=== PATIENT | female | born 1980 | race Caucasian/White ===

== ENCOUNTER 2019-10-23 06:50 | Day surgery (SDC) | payer OTHER ==
[~2019-10-23] VITALS: Ht 170.2 cm; Wt 96.2 kg
[~2019-10-23 06:50] MED LIST: CARAFATE1 GM PO; NORCO 5-325 TA1 EACH PO; PHENTERMINE H37.5 M1 PO; PRILOSEC20 MG PO; TOPIRAMATE100 MG PO
--- NOTE | 2019-10-23 08:33 | NUR ---
PATIENT UPDATED ON SURGICAL SCHEDULE AND SHE VERBALIZES UNDERSTANDING. PATIENT DENIES ADDITIONAL NEEDS AT THIS TIME.
--- NOTE | 2019-10-23 09:56 | NUR ---
10/23/19 0956 Mallika Roque 0945- PT ARRIVES TO PACU EASILY AROUSABLE TO VOICE, FALLS TO SLEEP WHEN NOT BEING STIMULATED. RESP EVEN AND UNLABORED. OXYGEN SAT HIGH 90'S TO 100% ON 6L VIA MASK. 0948- PT PULLING OFF OXYGEN MASK. OXYGEN MASK REMOVED AND PT ENCOURAGED TO COUGH AND DEEP BREATHE.
[2019-10-23] MEDS ORDERED: MOTRIN IB200 M1 PO (10:33)
[2019-10-23] MEDS ORDERED: NORCO 5-325 TA1 EACH PO (10:33)
--- NOTE | 2019-10-23 11:12 | NUR ---
AMB TO BR DOES WELL. VOIDS 200MLS WITH BLOOD.
--- NOTE | 2019-10-23 11:19 | NUR ---
DISCHARGE INSTRUCTIONS ARE GIVEN TO PATIENT IN PRESENCE OF HER SPOUSE AND BOTH VERBALIZE UNDERSTANDING. PATIENT IS GETTING DRESSED IN PRESENCE OF SPOUSE.
--- NOTE | 2019-10-24 10:56 | OR ---
[facility] [address] [place], [place] [address] Signed DATE OF OPERATION: 10/23/2019 SURGEON: Brent Berrios MD Patient of Dr. Berrios. PREOPERATIVE DIAGNOSIS: Abnormal uterine bleeding. POSTOPERATIVE DIAGNOSIS: Abnormal uterine bleeding. PROCEDURE: Hysteroscopy with D and C. ANESTHESIA: Monitored anesthesia care. ESTIMATED BLOOD LOSS: 25 mL. SPECIMEN: Uterine curettings. DRAINS: None. PACKING: None. FINDINGS: Normal vagina. Normal cervix. The uterus normal size and shape with endometrial cavity sounded to 9 cm, having normal-appearing endometrial tissue with no polyps, no fibroids seen in the cavity. Both ostia appeared normal. COMPLICATIONS: None. DESCRIPTION OF PROCEDURE: The patient was brought to the operating room and placed in supine position. After Electronically Signed By: BRENT BERRIOS MD 10/24/19 1056 PATIENT NAME: ZACHARY MALDONADO OPERATIVE REPORT DATE OF : 76 REPORT #: [id number] PHYSICIAN: BRENT BERRIOS MD PCP: JAKE PHILLIPS NP REPORT IS CONFIDENTIAL AND NOT TO BE RELEASED WITHOUT AUTHORIZATION [facility] [address] [place], [place] [address] Signed adequate anesthesia was obtained, the patient was placed in the dorsal lithotomy position, prepped and draped in usual sterile fashion. Weighted speculum was placed in the vagina and the anterior lip of cervix grasped with the Allis clamp. Uterine cavity was sounded to 9 cm and cervix serially dilated. The hysteroscope with video attachment was placed in the endocervical canal and entered uterine cavity under direct visualization using sterile saline as distending medium. Upon entering the uterus, the above findings were noted. No abnormalities were seen throughout the cavity, so the hysteroscope was removed. The cervix dilated further up to #8-Mohawk dilator and then sharp curette carefully introduced in uterine cavity and scraped in 360-degree fashion removing moderate amount of normal-appearing tissue. The cavity was scraped in the fundus in 360 degrees. Again, good sampling throughout and tissue placed on Telfa. At this point, the Telfa pad and Allis clamp were removed and the cervix observed and noted to have good hemostasis. All instruments were removed from vagina. The patient tolerated the procedure well, went to recovery room in good condition. The sponge and instrument count correct at the end of procedure. Uterine curettings were sent to Pathology for identification. MD NAVARRO AngelesB/KAYCEEL /[id number] cc: Jake Phillips NP Copies: JAKE PHILLIPS NP ~ Electronically Signed By: BRENT BERRIOS MD 10/24/19 1056 PATIENT NAME: ZACHARY MALDONADO OPERATIVE REPORT DATE OF : [birth year] REPORT #: [id number] PHYSICIAN: BRENT BERRIOS MD PCP: JAKE PHILLIPS NP REPORT IS CONFIDENTIAL AND NOT TO BE RELEASED WITHOUT AUTHORIZATION
--- NOTE | 2019-10-29 09:06 | PATH ---
[facility] [address] [place], [place] [address] Signed SPECIMEN(S): A ENDOMETRIAL CURETTINGS SPECIMEN SOURCE: A. ENDOMETRIAL CURETTINGS CLINICAL HISTORY: Abnormal uterine bleeding. FINAL PATHOLOGIC DIAGNOSIS: Uterus, endometrium, curettage: - Late secretory phase. - Negative for hyperplasia, atypia, and malignancy. KIMA:wale:C2NR MICROSCOPIC EXAMINATION: Histologic sections of all submitted blocks are examined by light microscopy. These findings, together with the gross examination, support the pathologic diagnosis. GROSS DESCRIPTION: The specimen, labeled "DS, A" and "endometrial curettings" on the requisition, is received in formalin and consists of a 2.3 x 2.2 x 0.7 cm aggregate of soft, chaudhary to red tissue that is wrapped and submitted entirely in cassettes (A1-A2). SS (under the direct supervision of a pathologist) The Gross Description was prepared using a voice recognition system. The report was reviewed for accuracy; however, sound-alike word errors, addition and/or deletions may occur. If there is any question about this report, please contact Client Services. PERFORMING LABORATORY: The technical component was performed by [facility], [address] [place] [id number] (Graduation Coach: Krysten Goodwin MD; CLIA# [id number]). [facility], [address] [address] (CLIA# [id number]). Diagnostician: Juan Thomas MD Pathologist Electronically Signed 10/29/2019 PATIENT NAME: ZACHARY MALDONADO PATHOLOGY DATE OF : [birth year] REPORT #: [id number] PHYSICIAN: ALLISON ROMAN PCP: JAKE PHILLIPS NP REPORT IS CONFIDENTIAL AND NOT TO BE RELEASED WITHOUT AUTHORIZATION [address] [place] [address] Signed Copies: ~ PATIENT NAME: ZACHARY MALDONADO PATHOLOGY DATE OF : [birth year] REPORT #: [id number] PHYSICIAN: ALLISON PATHOLOGY PCP: JAKE PHILLIPS NP REPORT IS CONFIDENTIAL AND NOT TO BE RELEASED WITHOUT AUTHORIZATION
== END 2019-10-23 11:20 | disposition home or self-care (01) ==
LOC: DS 06:50 → OPS 06:50 → DS 08:30 → OPS 11:20
PROVIDERS: General Practice
PROC: 0UDB8ZZ Extraction of Endometrium, Via Natural or Artificial Opening Endoscopic (ICD-10-PCS; principal; 2019-10-23 08:30)
DX: N93.9 Abnormal uterine and vaginal bleeding, unspecified (principal); R51 Headache; K58.9 Irritable bowel syndrome, unspecified; K21.9 Gastro-esophageal reflux disease without esophagitis; Z90.721 Acquired absence of ovaries, unilateral; Z88.1 Allergy status to other antibiotic agents; Z79.899 Other long term (current) drug therapy
CPT/HCPCS: 00952; J1100; J1885; J2001; J2405; J2704; J3010; J7121

== ENCOUNTER 2020-03-25 05:35 | Day surgery (SDC) | payer OTHER ==
[~2020-03-25] VITALS: Ht 170.2 cm; Wt 98.0 kg
[~2020-03-25 05:35] MED LIST changes: +MOTRIN IB200 M1 PO
[2020-03-25] MEDS ORDERED: DAILY MULTIPLE1 EACH PO (05:58)
--- NOTE | 2020-03-25 09:20 | NUR ---
03/25/20 0920 Rosalba Patel 0913- PT TO PACU IN SF POSITION. EYES CLOSED. NODS HEAD YES/NO APPROPRIATELY. NODS HEAD YES TO PAIN BUT UNABLE TO OPEN EYES AND RATE PAIN. BREATHING EASY AND UNLABORED ON 6 L O2 VIA SIMPLE MASK. SPO2 >95%. LAP SITES CDI, PADMINI PAD IN PLACE. 0918- PT CONTINUES TO SLEEP. BREATHING EASY AND UNLABORED ON 6 L O2 VIA SIMPLE MASK. SP02 100%. REPORT RECEIVED FROM ULTRASONIC CLEANER.
--- NOTE | 2020-03-25 10:24 | NUR ---
ICED WATER AND ORA CRACKERS GIVEN. CALL LIGHT IS WITHIN REACH. PATIENT'S SPOUSE IS AT THE BEDSIDE. PATIENT IS SITTING UP EATING AND DRINKING AND TOLERATING THAT WELL.
--- NOTE | 2020-03-25 11:09 | NUR ---
LE 1030: PATIENT IS UP TO THE BATHROOM WITH MY STANDBY. PATIENT AMBULATES SLOW AND REPORTS PAIN WHILE AMBULATING. LANDRY BALLOON DEFLATED FOR 8 ML FLUID AND LANDRY IS DC WNL. 200 ML BRIGHT, YELLOW URINE EMPTIED FROM LANDRY OVERNIGHT BAG. PATIENT VOIDS SCANT AMOUNT OF BRIGHT, YELLOW URINE AND SHE IS BACK IN BED. PATIENT REPORTS FEELING "HOT." PRICILA HUGGER ON COOL. SCDS CONNECTED AND TURNED ON. PRN GIVEN FOR NAUSEA. HOB IS DOWN. EMESIS BAG IS GIVEN.
--- NOTE | 2020-03-25 11:23 | NUR ---
SOUP, SANDWICH AND FRUIT ORDERED FROM DIETARY. PATIENT'S SPOUSE IS AT THE BEDSIDE.
[2020-03-25] MEDS ORDERED: PERCOCET 5-3251 EACH PO (11:34)
[2020-03-25] MEDS ORDERED: MOTRIN IB200 MG PO (11:34)
--- NOTE | 2020-03-25 11:55 | NUR ---
FOOD ARRIVES. PATIENT REPORTS NAUSEA. ADDITIONAL PRN GIVEN FOR NAUSEA. PATIENT CONTINUES USING COOL AIR. SPOUSE REMAINS AT THE BEDSIDE.
--- NOTE | 2020-03-25 14:35 | NUR ---
PATIENT IS UP TO THE BATHROOM. PATIENT VOIDS 300 ML BRIGHT, YELLOW URINE AND IS BACK IN BED. SPOUSE REMAINS AT THE BEDSIDE. PATIENT ASKS FOR ADDITIONAL PRN FOR PAIN. PATIENT ATE 100% OF HER LUNCH. MORE ICED WATER GIVEN. PATIENT DENIES NAUSEA AT THIS TIME.
--- NOTE | 2020-03-25 15:12 | NUR ---
LE 1445: PATIENT PUSHES HIS CALL LIGHT AND ASKS TO BE DISCHARGED HOME. PATIENT IS GIVEN DISCHARGE INSTRUCTIONS AND SHE VERBALIZES UNDERSTANDING. REDNESS NOTED ON PATIENT'S LEFT FOREARM AND IS APPEARS TO BE FROM THE IV TUBING. PATIENT REUBEN PAIN AT THIS SITE. PATIENT IS GETTING DRESSED IN THE PRESENCE OF HER SPOUSE AND SHE TRANSFERS HERSELF TO THE WHEELCHAIR WELL.
--- NOTE | 2020-03-26 08:46 | OR ---
[facility] [address] [place] [address] [place], [place] [address] Signed DATE OF OPERATION: 03/25/2020 SURGEON: Brent Berrios MD PREOPERATIVE DIAGNOSIS: Abnormal uterine bleeding. POSTOPERATIVE DIAGNOSES: Abnormal uterine bleeding plus sigmoid adhesions. PROCEDURE PERFORMED: Total laparoscopic hysterectomy with right salpingectomy and cystoscopy. INSURANCE LOSS CONTROL SURVEYOR: Dr. Warren. ANESTHESIA: General. ESTIMATED BLOOD LOSS: 20 mL. COMPLICATIONS: None. DRAINS: Swenson to bladder. SPECIMENS: Uterus, right fallopian tube. FINDINGS: Cervix thick and closed. Uterus normal size and shape. The anterior cul-de-sac was free of any endometriosis or adhesions. The posterior cul-de-sac had dense adhesions from the sigmoid covering the posterior cul-de-sac and incorporating the right uterosacral ligament. The left tube and ovary were absent from previous surgery. The right tube was normal in length with a normal-appearing fimbriated end and no adhesions. Right ovary is normal size and shape without any evidence of endometriosis or adhesions. The rest of pelvis was free of any masses or adhesions. Electronically Signed By: BRENT BERRIOS MD 03/26/20 0846 PATIENT NAME: ZACHARY MALDONADO OPERATIVE REPORT DATE OF : [birth year] REPORT #: [id number] PHYSICIAN: BRENT BERRIOS MD PCP: JAKE PHILLIPS NP REPORT IS CONFIDENTIAL AND NOT TO BE RELEASED WITHOUT AUTHORIZATION [facility] [address] [place], [place] [address] Signed DESCRIPTION OF PROCEDURE: The patient was brought into the operating room, placed in supine position. After adequate general anesthesia was obtained, she was placed in dorsal lithotomy position, prepped and draped in usual sterile fashion. Swenson catheter was placed in the bladder. Weighted speculum was placed in the vagina and the anterior lip of cervix grasped with an Allis clamp. The cervix was serially dilated and then the VCare uterine manipulator was inserted through the cervix into the fundus of the uterus and the balloon filled. The Allis clamp and weighted speculum were removed and the cervical cap of the VCare was slid up around the cervix and then the vaginal cup slid up and tightened in place to keep the cervical cap around the cervix. Attention was then drawn to the abdomen. A small infraumbilical skin incision was made through previous surgical scar using a scalpel after injecting the area with 0.25% Marcaine with epinephrine. The subcutaneous tissue was dissected with Metzenbaum scissors. The fascia identified and grasped with hemostats, elevated, nicked with Metzenbaum scissors and extended in transverse fashion using Metzenbaum scissors. Retention stitches of 0 Vicryl were then placed above and below the incision. The peritoneum was identified, carefully grasped with hemostats and nicked with Metzenbaum scissors and then finger dissection was used to open the incision further. An S retractor was inserted into the incision and spun 360-degree fashion showing no assistance. The Steven cannula and sleeve then entered the abdomen under direct visualization with the balloon filled in the outer ring, slid down and tightened in place. The two retention stitches were then attached to this upper ring. The trocar was removed and laparoscope with video attachment entered the abdomen under direct visualization. Carbon dioxide was used as distending medium. The left side approximately 10 cm lateral to the midline and just below the level of the umbilicus, the area was transilluminated then injected with 0.25% Marcaine with epinephrine and a small skin incision made with a scalpel. A bladed 5-mm trocar and sleeve entered the abdomen under direct visualization. The trocar was removed and the blunt grasper inserted. On the right side again, the area was transilluminated. The area injected with 0.25% Marcaine with epinephrine and the skin incision made with a scalpel. Again, this was approximately 10 cm lateral to the midline and just below the level of the umbilicus. A Veress needle with expandable sleeve was then placed into the abdomen under direct visualization. The Veress needle was removed and a 12 mm expandable trocar and sleeve placed through the expandable sleeve into the abdomen under direct visualization. Trocar was removed and 2nd blunt grasper inserted on this side. The above findings were noted. The sigmoid adhesions were carefully inspected. They did seem to be right at the level of the cervical cap, which could be palpated with a blunt grasper and seemed to be right at the level of the adhesions. The LigaSure bipolar [place] forceps were used for dissection. The right fallopian tube was cauterized and transected in the proximal portion and the tube removed through the lateral port. The left round ligament was cauterized and cut. The upper broad ligament cauterized and cut and then the anterior posterior leaves of the broad ligament individually Electronically Signed By: BRENT BERRIOS MD 03/26/20 0846 PATIENT NAME: ZACHARY MALDONADO OPERATIVE REPORT DATE OF : [birth year] REPORT #: [id number] PHYSICIAN: BRENT BERRIOS MD PCP: JAKE PHILLIPS NP REPORT IS CONFIDENTIAL AND NOT TO BE RELEASED WITHOUT AUTHORIZATION [address], [place] [address] Signed cauterized and cut down the length of the broad ligament staying near the uterus and extending to the midline anteriorly and posteriorly stopping before getting to the adhesions. The left uterine vessels were cauterized in several places before cutting and individual vessels were cauterized and cut as identified clearing the tissue down the inside the cup down to the vaginal wall. On right side, the round ligament was cauterized in several places and cut. The uteroovarian ligament cauterized in several places and cut and then the upper pedicle cauterized and cut. The anterior posterior leaves of the broad ligament individually cauterized and cut. Anteriorly, this connected to the previous anterior dissection just inside the cup and posteriorly, this was taken down again stopping before reaching the adhesions. Uterine vessels on the right side were cauterized in several places and cut the tissue, cauterized and cut down to the vaginal wall. At this point, laparoscopic scissors were used to carefully cut the peritoneum and part of the cervical tissue above the sigmoid adhesions. Care was taken to make sure that the sigmoid was not disrupted. The sigmoid serosa was not disrupted leaving a small portion of cervical tissue rather than injuring the sigmoid. With this partially dissected free area between the cervix and the sigmoid was identified. The Sonicision was then used to cut through the vaginal wall, this started at left uterosacral ligament and this was opened until the groove of the cervical cap was found and then following the groove of the cap, the Sonicision was used to cut through the vaginal mucosa wall from posterior to anterior midline and then on the left side and then on the right side carefully down from anterior to down stopping before reaching the sigmoid adhesions. At this point, the Sonicision was used in the space created by the laparoscopic scissors just inside the cup and was carefully taken down leaving some tissue between the sigmoid and dissection. This was then joined with the previous dissection on the left side, freeing the uterus. Attention was then drawn to the abdomen. The VCare manipulator was carefully removed. The cervix seen in the vagina and cervix grasped with an Allis clamp and easily removed from the vagina. The laparotomy sponge filled glove was then placed in the vagina so the abdomen could be re-insufflated. Attention was then drawn back to the abdomen. The abdomen was re-insufflated and the entire pelvis irrigated, suctioned and examined. There was small amount of bleeding on the left cuff by the uterosacral ligament and this was carefully cauterized with the laparoscopic monopolar paddle. At this point, the endo-stitch barbed suture was brought in and the cuff closed starting at the right uterosacral ligament and stitching posterior to anterior through the posterior cuff edge and after first stitch placing the suture through the small loop at the end of the barbed suture, the barbed suture was then tightened and then the anterior edge of the cuff stitched again posterior to anterior and again tightened. This was continued individually grasping the posterior edge pulling through and then the anterior edge in pulling through. There was enough tissue so that the posterior cuff could be closed without being in the adhesions or near Electronically Signed By: BRENT BERRIOS MD 03/26/20 0846 PATIENT NAME: ZACHARY MALDONADO OPERATIVE REPORT DATE OF : [birth year] REPORT #: [id number] PHYSICIAN: BRENT BERRIOS MD PCP: JAKE PHILLIPS NP REPORT IS CONFIDENTIAL AND NOT TO BE RELEASED WITHOUT AUTHORIZATION [address] [address] Signed the sigmoid colon and anteriorly, care was taken to avoid the bladder. This was continued over to the left uterosacral ligament and then the stitch taken back toward the midline again stopping before reaching the adhesions. At this point, the cuff was closed well. Good hemostasis was noted throughout. The entire pelvis was irrigated, suctioned and examined. Tisseel was then sprayed over the entire cuff particularly by the adhesions to help control any oozing and at this point, again good hemostasis was noted throughout, the gas was allowed to escape lowering the pressure and good hemostasis remained. At this point, all instruments were removed. The rest of the gas allowed to escape and the final sleeve removed. The infraumbilical fascia was closed using a running stitch of 0 Vicryl suture. The two retention stitches tied together for further support of the fascia. The 3 skin incisions were closed using subcuticular stitches of 4-0 Vicryl. The glove was removed from the vagina and the Swenson removed from the bladder. The cystoscope was prepared and the 70-degree cystoscope was placed in the urethra and entered the bladder under direct visualization using sterile saline as distending medium. The entire bladder was examined and there were no defect stitches or raw areas noted. Both ureteral orifices were identified and both had good jets of urine. So at this point, the cystoscope was removed, the bladder drained, and the sleeve removed from the urethra. Swenson catheter placed back in the bladder. The patient tolerated the procedure well, went to recovery room in good condition. The sponge, needle and instrument count were correct at the end of procedure. Again, the uterus and right fallopian tube were sent to Pathology for identification. MD AMANDO Angeles/CARRIE /[id number] cc: Jake Phillips NP Copies: JAKE PHILLIPS NP Electronically Signed By: BRENT BERRIOS MD 03/26/20 0846 PATIENT NAME: ZACHARY MALDONADO OPERATIVE REPORT DATE OF : [birth year] REPORT #: [id number] PHYSICIAN: BRENT BERRIOS MD PCP: JAKE PHILLIPS NP REPORT IS CONFIDENTIAL AND NOT TO BE RELEASED WITHOUT AUTHORIZATION [address] [place], [place] [address] Signed ~ Electronically Signed By: BRENT BERRIOS MD 03/26/20 0846 PATIENT NAME: ZACHARY MALDONADO OPERATIVE REPORT DATE OF : [birth year] REPORT #: [id number] PHYSICIAN: BRENT BERRIOS MD PCP: JAKE PHILLPIS NP REPORT IS CONFIDENTIAL AND NOT TO BE RELEASED WITHOUT AUTHORIZATION
--- NOTE | 2020-03-29 14:25 | PATH ---
[facility] [address] [place], [place] [address] Signed SPECIMEN(S): A UTERUS, CERVIX AND RIGHT TUBE SPECIMEN SOURCE: A. UTERUS, CERVIX AND RIGHT TUBE CLINICAL HISTORY: Abnormal uterine bleeding. FINAL PATHOLOGIC DIAGNOSIS: Uterus, cervix, and right fallopian tube, hysterectomy and unilateral salpingectomy: - Cervix: Tunnel clusters. - Endometrium: Secretory phase endometrium. - Myometrium and serosa: No histopathologic abnormality. - Right fallopian tube: No histopathologic abnormality. NAL:cml:C2NR MICROSCOPIC EXAMINATION: Histologic sections of all submitted blocks are examined by light microscopy. These findings, together with the gross examination, support the pathologic diagnosis. GROSS DESCRIPTION: The specimen, labeled "DS, uterus, cervix and right fallopian tube," is received in formalin and consists of one hard to oriented uterus and cervix. The uterus measures 5.0 cm cornu to cornu, 3.5 cm anterior to posterior, 7.3 cm superior to ectocervix. The serosal surface is pink-chaudhary and smooth. The uterus weighs 103 grams. The ectocervix is pink-chaudhary, focally congested and slightly rough around cervical canal opening. The ectocervix measures 3.5 x 3.5 cm. Sectioning through the cervix reveals pink-chaudhary, homogenous tissue. The endometrial cavity measures 2.2 x 2.5 cm. It is lined with pink-red, smooth endometrium. Sectioning through the myometrium reveals trabeculated surface. No masses or abnormalities are grossly identified. The myometrium measures 1.8 cm. The endometrium measures up to 0.2 cm in thickness. from the uterus, within the container is right fallopian tube that measure 5.5 x 0.7 cm. It shows fimbria and violaceous and smooth serosa. Cassette Summary: (A1) Cervix, outbound telemarketing representative sections PATIENT NAME: ZACHARY MALDONADO PATHOLOGY DATE OF : 76 REPORT #: [id number] PHYSICIAN: ALLISON PATHOLOGY PCP: JAKE PHILLIPS NP REPORT IS CONFIDENTIAL AND NOT TO BE RELEASED WITHOUT AUTHORIZATION [facility] [address] [place], [place] [address] Signed (A2) Endomyometrium, outbound telemarketing representative sections (A3) Right fallopian tube, outbound telemarketing representative sections JS (under the direct supervision of a pathologist) The Gross Description was prepared using a voice recognition system. The report was reviewed for accuracy; however, sound-alike word errors, addition and/or deletions may occur. If there is any question about this report, please contact Client Services. PERFORMING LABORATORY: The technical component was performed by [facility], [address] [place] [id number] (Dandy Operator: Krysten Goodwin MD; CLIA# [id number]). [facility], [address] [address] (CLIA# [id number]). Diagnostician: Asha Asif MD Pathologist Electronically Signed 03/29/2020 Copies: ~ PATIENT NAME: ZACHARY MALDONADO PATHOLOGY DATE OF : 76 REPORT #: [id number] PHYSICIAN: ALLISON ROMAN PCP: JAKE PHILLIPS NP REPORT IS CONFIDENTIAL AND NOT TO BE RELEASED WITHOUT AUTHORIZATION
== END 2020-03-25 14:45 | disposition home or self-care (01) ==
LOC: OPS 05:35 → DS 05:35 → OPS 06:45
PROVIDERS: General Practice
PROC: 0UT94ZZ Resection of Uterus, Percutaneous Endoscopic Approach (ICD-10-PCS; principal; 2020-03-25 06:45)
PROC: 0UT54ZZ Resection of Right Fallopian Tube, Percutaneous Endoscopic Approach (ICD-10-PCS; 2020-03-25 06:45)
DX: N93.9 Abnormal uterine and vaginal bleeding, unspecified (principal); K66.0 Peritoneal adhesions (postprocedural) (postinfection); G89.29 Other chronic pain; R51 Headache; K21.9 Gastro-esophageal reflux disease without esophagitis; E66.9 Obesity, unspecified; Z90.721 Acquired absence of ovaries, unilateral; Z98.890 Other specified postprocedural states; Z68.33 Body mass index [BMI] 33.0-33.9, adult; Z88.1 Allergy status to other antibiotic agents; Z79.899 Other long term (current) drug therapy
CPT/HCPCS: 00840; J0690; J1100; J1170; J1644; J1885; J2270; J2405; J2550; J2704; J3010; J3475; J7121

== ENCOUNTER 2020-05-21 05:27 | Inpatient (IN) | payer OTHER ==
[~2020-05-21] VITALS: Ht 170.2 cm; Wt 96.4 kg
--- NOTE | ~2020-05-21 | DS ---
[facility] [address], [place] [address] Draft ADMISSION DATE: 05/21/2020 DISCHARGE DATE: 05/24/2020 REASON FOR ADMISSION: This obese 40-year-old white woman is a patient of AVANI Lance and in the past 2 months or so underwent hysterectomy with sparing of the right tube and ovary by Dr. Berrios. This was for benign disease. She had undergone left ovarian cystectomy and ovariectomy in her teenagers for a cyst problem. 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 Talbert. Her hematocrit at that time was 42. A CT scan of the abdomen and pelvis showed multiple areas of amorphous fluid collection in the pelvis and low abdomen, uncertain if hemorrhagic or other source of fluid. The right ovary was not visualized nor was the appendix. Concern was maintained this may represent appendicitis or possibly ruptured ovarian cyst or other unknown problem. She was directly admitted for further evaluation and care. PERTINENT PHYSICAL EXAMINATION: GENERAL: Showed a somewhat obese white woman, who looked to be in moderate discomfort. She was not hypotensive or tachycardic or diaphoretic particularly. CHEST: Clear. HEART: Regular without murmur. ABDOMEN: Palpated and markedly tender in the right lower abdomen. VITAL SIGNS: Temperature was 97.6, pulse 67, and blood pressure 122/87. LABORATORY STUDIES: Showed a hematocrit of 42.3, white count of 7.6, and platelets of 354,000. HOSPITAL COURSE: The patient was admitted, given intravenous fluids and monitored and given parenteral pain medication and IV Ancef anticipating exploration. Her hematocrit was repeated and found to be 32. She did not have hypotension or severe tachycardia. At approximately 7 p.m. on May 21, she underwent laparoscopy. She was found to have a considerable amount of hemoperitoneum with gelatinous clot low in the pelvis. It could not be explanted despite various efforts to do so, and on that basis, converted to a pelvic laparotomy with a limited infraumbilical incision extending from the incision of the laparoscopy itself. A considerable amount of clot was evacuated from the pelvis and the abdomen and free-flowing blood also removed. This was found ultimately related to a ruptured 6 cm right-sided hemorrhagic cyst. The cyst was excised and preservation PATIENT NAME: ZACHARY MALDONADO DISCHARGE SUMMARY DATE OF : [birth year] REPORT #: [id number] PHYSICIAN: LYNDSEY ROSEN MD PCP: JAKE PHILLIPS NP REPORT IS CONFIDENTIAL AND NOT TO BE RELEASED WITHOUT AUTHORIZATION [facility] [address], [place] [address] Draft remaining ovary undertaken. Ovarian remnant was oversewn with Vicryl allowing for improved hemostasis as well. She had a small atretic appendix and this was removed as well on the possibility this episode may occur again one day. Ovarian preservation was deemed advisable as she is premenopausal and despite prior hysterectomy. A drain was placed in the pelvis. Her postoperative course was rather unremarkable. She did have much improvement of her abdominal pain with evacuation of the clot and so on. Bilateral tap blocks were placed for postoperative pain relief. They were variably effective. She was advanced. She was placed on a regular diet postoperatively and drain monitored. She still had a fair amount of bloody drainage from the drain itself. A hematocrit was repeated on May 22, which was 28. She ultimately had an improvement of her abdominal pain with a combination of oral analgesics. The drain was removed prior to discharge. Incision appears to be healing well. Lab study performed on the day of discharge showed hematocrit improving now to 30.5, up from 28.6 the day before. She is advised to avoid lifting more than 20 pounds for the next 4 weeks. She has been permitted to work whenever she feels ready as long as she can observe this restriction. She is requested to shower on a daily basis. She will leave the Steri-Strips in place. She should avoid driving if taking any opiates. MEDICATIONS: Include: 1. Motrin 600 mg p.o. q.6 hours as needed for pain, #30, refill 2. 2. Percocet 7.5/325 one to two q.6 hours as needed for pain, #10. 3. Tylenol 1000 mg p.o. q.6 hours as needed for pain, #60, refill one. 4. Zofran 4 mg sublingual q.6 as needed for nausea, #20. She will continue with the usual medications includin. Omeprazole 20 mg p.o. daily. 2. Multivitamin one tablet p.o. daily. 3. Loratadine Allergy Relief 10 mg p.o. daily as needed for allergies. DISCHARGE DIAGNOSES: 1. Acute abdomen secondary to ruptured hemorrhagic ovarian cyst (6 cm), status post laparoscopy and subsequent limited pelvic laparotomy with evacuation of clot and right ovarian cystectomy with preservation of right ovary. 2. History of hysterectomy in the past 2 months. 3. Distant history of left salpingo-oophorectomy for cystic disease, teenage years. 4. Gastroesophageal reflux disease. 5. Seasonal allergies. FOLLOWUP PLAN: PATIENT NAME: ZACHARY MALDONADO DISCHARGE SUMMARY DATE OF : [birth year] REPORT #: [id number] PHYSICIAN: LYNDSEY ROSEN MD PCP: JAKE PHILLIPS NP REPORT IS CONFIDENTIAL AND NOT TO BE RELEASED WITHOUT AUTHORIZATION [facility] [address] [place] [address] Draft She will call for an appointment tomorrow (today is and office is closing). She will have follow up in about 4 weeks. MD SARA Garcia/KAYCEEL /[id number] cc: MD Kike Angeles MD Copies: ANNEMARIE BERRIOS MD, SHELDON MD ~ PATIENT NAME: ZACHARY MALDONADO DISCHARGE SUMMARY DATE OF : [birth year] REPORT #: [id number] PHYSICIAN: LYNDSEY ROSEN MD PCP: JAKE PHILLIPS NP REPORT IS CONFIDENTIAL AND NOT TO BE RELEASED WITHOUT AUTHORIZATION
[~2020-05-21 05:27] MED LIST changes: +DAILY MULTIPLE1 EACH PO; +MOTRIN IB200 MG PO; +PERCOCET 5-3251 EACH PO; +PRILOSEC OTC20 MG PO; -PRILOSEC20 MG PO
--- OUTSIDE RECORDS SUMMARY | 2020-05-21 05:30 | XMS ---
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 Lex has no Care Guidelines for this patient. Laila VISIT COUNT (12 MO.) 1 LALA Ballard TOTAL 1 NOTE: Visits indicate total known visits. ED/UCC VISIT TRACKING (12 MO.) 05/21/2020 05:28 LALA Pizano OR TYPE: Emergency COMPLAINT: - RT SIDE ABDOMENAL PAIN INPATIENT VISIT TRACKING (12 MO.) No inpatient visits to display in this time frame [email or web address]
--- NOTE | 2020-05-21 08:03 | NUR ---
PT TO ICU FROM ER. PT ABLE TO STAND AND PIVOT FROM GURNEY TO BSC, VOIDS, THEN TO BED. PT ALERT AND ORIENTED X4, PT DENIES NAUSEA AND SOB. PT REPORTS ABD PAIN IN RT LOW QUAD 8/10. IV SITE IS INTACT, NO REDNESS OR SWELLING NOTED, FLUIDS INFUSING.
--- NOTE | 2020-05-21 09:58 | NUR ---
20 G IV SITE STARTED IN PT LEFT HAND, PT DAVID EASILY.
--- NOTE | 2020-05-21 10:53 | NUR ---
PRE-SURG WIPE DOWN COMPLETED, PT BACK TO BED, ALL LINENS CHANGED, PT ABLE TO VOID 700 ML AT BSC. PT SLIGHTLY PAINFUL WITH MOVEMENT, BUT ABLE TO DAVID.
[2020-05-21] MEDS ORDERED: TOPAMAX25 MG PO (11:20)
--- NOTE | 2020-05-21 11:33 | NUR ---
PT VOMITING, CALLED PACU, THEN OR CHARGE, THEN DAY SURGERY TO GET A MESSAGE TO .
[2020-05-21] MEDS ORDERED: ADVIL200 MG PO (11:40)
[2020-05-21] MEDS ORDERED: TYLENOL EXTRA500 MG PO (11:41)
[2020-05-21] MEDS ORDERED: ALLERGY RELIEF10 M1 PO (11:41)
--- NOTE | 2020-05-21 11:45 | NUR ---
pt given 12.5 mg iv phenergan per phone order from OR.
--- NOTE | 2020-05-21 11:59 | NUR ---
PT REPORTS THAT HER NAUSEA HAS RESOLVED, REPORTS PAIN IN RT LOW QUAD OF ABD IS 8/10, DENIES NEED FOR PAIN MEDICATION AT THIS TIME. PT LAYING IN BED, VITALS ARE WNL, IS AT THE BEDSIDE.
--- NOTE | 2020-05-21 12:10 | NUR ---
PT REPORTS "I'M READY FOR PAIN MEDICINE NOW". PT GIVEN 4 MG IV MORPHINE FOR 05/27 ABD PAIN. PT DENIES SOB AND NAUSEA
--- NOTE | 2020-05-21 12:25 | NUR ---
ILIA IRBY REQUESTED I VISIT PT. SHE IS TO HAVE SURGERY FOR SEVERE PAIN IN ABDOMEN. GAVE ENCOURAGEMENT, PT AND REQUESTED PRAYER. WILL FOLLOW
--- NOTE | 2020-05-21 14:09 | NUR ---
CALL TO DR ROSEN FOR MORE NAUSEA MEDS. ORDER FOR ONE TIME PHENERGAN 12.5 MG
--- NOTE | 2020-05-21 15:40 | NUR ---
Spoke with Anupama and her spouse. [place] live [place] in a 2 story home with 3 steps into home. She denies issues with stairs or steps. Denies use of DME. States she is usually an active person. Complains of pain in her side and is awaiting to speak with Dr. Garvey. Denies needs and plans on dc to home when cleared by . She thinks she will more than likely have surgery this afternoon. States mom is a nurse and will help her if needed.
--- NOTE | 2020-05-21 15:48 | NUR ---
PT IS AWAKE AND ALERT X4, UP TO THE BEDSIDE COMMODE TO VOID AND THEN BACK TO BED. PT DENIES NEED FOR PAIN MEDICATION, DENIES NAUSEA.
--- NOTE | 2020-05-21 16:20 | NUR ---
PT HAS LEFT THE FLOOR WITH OR BONE TENDER TAMMY. PT IS ALERT AND ORIENTED X4. SPOUSE SHOWEN TO ROOM 123 ON MED/SURG FLOOR WHERE PT IS TO TRANSFER TO POST-OP.
--- NOTE | 2020-05-21 18:59 | NUR ---
05/21/20 185 Maci Seth 1856 PATIENT ARRIVES TO PACU UNRESPONSIVE TO PAIN. ORAL AIRWAY IN PLACE. MASK AT 6 LITERS. RESP EVEN AND UNLABORED.
--- NOTE | 2020-05-21 19:30 | NUR ---
SHIFT REPORT RECEIVED FROM CHELSEA MORILLO. PT IS STILL IN SURGERY.
--- NOTE | 2020-05-21 20:22 | NUR ---
PT ARRIVED FROM PACU, GOT VITALS DONE, DEISY AND LANDRY DRAINED, GOT PT SOME JELLO, CRACKERS, SODA AND ICE WATER, GOT AN ICE PACK AND WARM BLANKET, RN IN FOR ASSESMENT, PT HAS NO FURTHER REQUESTS AT THIS TIME, CALL LIGHT IN REACH, BEDSIDE TABLE SET UP
--- NOTE | 2020-05-21 20:41 | NUR ---
ASSESSMENT, VS AND I&O COMPLETED. PAIN 7/10 AND NAUSEA REPORTED, PRN NAUSEA AND PAIN MED PROVIDED. SBACKS AND ICE WATER PROVIDED. PT STATES ABD DISTENTION IS SEVERE, SOFT, OBESE, BOWEL TONES ACTIVE. UPPER MID EPIGASTRIC INCISION WNL, COVERED BY STERISTRIPS, DRY. RIGHT LOWER ABDOMEN DEISY DRAIN SITE WNL, SANGUINOUS DISCHARGE, SITE REINFORCED WITH GAUZE RELATED TO MODERATE BLOOD DRAINAGE AT SITE. LOWER MID ABDOMEN INCISION COVERED, DRY, WNL. CMS X 4 EXTREMITIES. A&O X4, GCS 15. LANDRY WNL, DILUTE YELLOW URINE. IV WNL, CDI, FLUSHED WELL, IV FLUIDS INFUSING PER ORDER. LUNGS CLEAR, HEART TONES REGULAR. NO EDEMA NOTED IN EXTREMITIES. NO OTHER NEEDS AT THIS TIME. CALL LIGHT IN REACH.
--- NOTE | 2020-05-21 21:58 | NUR ---
SCHEDULED MED PROVIDED. DEISY EMPTIED, SANGUINOUS. IV WNL. VS COMPLETED. NO OTHER NEEDS AT THIS TIME. CALL LIGHT IN REACH.
--- NOTE | 2020-05-21 22:29 | PATH ---
[facility] [address] [place], [place] [address] Signed ORDERING PHYSICIAN: Fredo Velez MD PATIENT NAME: ZACHARY MALDONADOE GENDER: Jeny : 1980 SPECIMEN(S): No Source Given MOLECULAR PATHOLOGY RESULTS: SARS-CoV-2 Not Detected ADDITIONAL NOTES.: The [place] Fusion SARS-CoV-2 Assay is a multiplex real-time PCR (RT-PCR) in vitro diagnostic test intended for the qualitative detection of RNA from SARS-CoV-2 from individuals who meet COVID-19 clinical and/or epidemiological criteria. In general, SARS-CoV-2 RNA can be detected during the acute phase of infection. Positive results indicate the presence of SARS-CoV-2 RNA. Clinical correlation with patient history and other diagnostic information is necessary to determine patient infection status. Positive results do not rule out bacterial infection or co-infection with other viruses. Negative results do not preclude SARS-CoV-2 infection and should not be used as the sole basis for patient management decisions. Negative results must be combined with other clinical observations, patient history, and epidemiological information. The [place] Fusion SARS-CoV-2 Assay is not yet approved or cleared by the [place] FDA. When there are no FDA-approved or cleared tests available, and other criteria are met, FDA can make tests available under an emergency access mechanism called an Emergency Use Authorization (EUA). The EUA for this test is supported by the [place] of Health and Human Service's (HHS's) declaration that circumstances exist to justify the emergency use of in vitro diagnostics for the detection and/or diagnosis of the virus that causes COVID-19. This EUA will remain in effect for the duration of the COVID-19 declaration justifying emergency of IVDs, unless it is terminated or revoked by FDA, after which the test may no longer be used. The [place] Fusion SARS-CoV-2 Assay is for use only under EUA in US laboratories certified under the Clinical Laboratory Improvement Amendments of 1988 (CLIA) to perform high complexity tests. [facility] is certified under CLIA to perform high complexity PATIENT NAME: ZACHARY MALDONADO PATHOLOGY DATE OF : [birth year] REPORT #: [id number] PHYSICIAN: ALLISON ROMAN PCP: JAKE PHILLIPS NP REPORT IS CONFIDENTIAL AND NOT TO BE RELEASED WITHOUT AUTHORIZATION [address] [address] Signed clinical laboratory testing. PERFORMING LABORATORY.: Molecular testing was performed by [facility] [address] [place], [place] [address] [address] (Manager Brand: George Saez D.O.; CLIA#: [id number]) Diagnostician: System Interface Pathologist Electronically Signed 05/21/2020 Copies: ~ PATIENT NAME: ZACHARY MALDONADO PATHOLOGY DATE OF : [birth year] REPORT #: [id number] PHYSICIAN: ALLISON ROMAN PCP: JAKE PHILLIPS NP REPORT IS CONFIDENTIAL AND NOT TO BE RELEASED WITHOUT AUTHORIZATION
--- NOTE | 2020-05-22 02:32 | NUR ---
ASSESSMENT, VS AND I&O COMPLETED. DEISY WNL, SEROSANGUINOUS OUTPUT. INCISION SITES COVERED, NO NEW DRAINAGE. ABD SOFT, TENDER, MODERATE DISTENTION. PT DENIES PASSING GAS YET. BOWEL TONES ACTIVE. CMS INTACT X 4 EXTREMITIES. NO EDEMA NOTED. GCS 15, A&O X4. IVs WNL. IV FLUIDS INFUSING PER ORDER. CALL LIGHT IN REACH.
--- NOTE | 2020-05-22 05:11 | NUR ---
PT SLEPT WELL THIS SHIFT. TOLERATED SNACKS AND DRINKS WELL. NAUSEA AND PAIN CONTROLLED WITH PRN MEDS WELL. LANDRY WNL, UOS, DILUTE AND WITHOUT ODOR. UPPER MID EPIGASTRIC PUNCTURE CDI, SCANT SS DRAINAGE. RIGHT LOWER DEISY SITE WNL, SMALL AMOUNT OF SANGUINOUS DRAINAGE AT SITE. LOWER MID UPIGASTRIC INCISION WNL, FOAM CDI. DEISY DRAINAGE SANGUINOUS, 295ML AT THIS TIME. PT STATES ABD IS MODERATELY DISTENDED, TENDER. BOWEL TONES ARE ACTIVE BUT PT DENIES PASSING GAS. PT TOLERATED IV FLUIDS AND LANDRY WELL. IVs WNL. LUNGS CLEAR. NO EDEMA NOTED AND CMS INTACT X 4 EXTREMITIES.
--- NOTE | 2020-05-22 06:12 | NUR ---
SCHEDULED MED PROVIDED. NEW BAG OF IV FLUIDS PROVIDED. ABD PAIN 04/26, PRN PAIN MED PROVIDED. VS AND I&O COMPLETED BY December. NO OTHER NEEDS AT THIS TIME. CALL LIGHT IN REACH.
--- NOTE | 2020-05-22 06:15 | NUR ---
VITALS AND I &OS DONE AND CHARTED. GARBAGES EMPTIED. ROOM CLEANED UP. BEDSIDE TABLE AND CALL LIGHT IN REACH. PT NEEDS NOTHING MORE AT THIS TIME.
--- NOTE | 2020-05-22 07:38 | NUR ---
REPORT RECEIVED. PT IN BED AWAKE. PAIN REPORTED AT 05/27. WILL ADMINSTER PAIN MEDICAITONS. CALL LIGHT IN [facility]. FLUIDS INFUSING WNL. DRESSINGS C/D/I. LANDRY IN PLACE. CALL LIGHT IN REACH
--- NOTE | 2020-05-22 08:01 | NUR ---
PT ASSISTED TO CHAIR. CPOX DC'D. DC'D FOSERGEY WITH 450MLS. PAIN MEDICATION GIVEN FRO 05/27 PAIN. PT DENEIS NAUSEA.
--- NOTE | 2020-05-22 10:21 | NUR ---
PATIENT AWAKE IN BED, FAMILY MEMBER IN ROOM. PAIN IS 10/10- RN NOTIFIED. VITALS AND I&OS CHARTED. CALL LIGHT IN REACH
--- NOTE | 2020-05-22 11:08 | NUR ---
ASSISTED PT TO BATHROOM FOR 400ML VOID. EMPTIED DEISY DRAIN FOR 20 ML OF DARK RED DRAINAGE. PAIN 9/10. WILL REASSESS IN 30 MINUTES TO SEE IN JOSE ALFREDO GOMEZ.
--- NOTE | 2020-05-22 13:05 | NUR ---
PT STILL IWTH 05/27 PAIN IN RLQ DESCRIBBED STABBING. DR ROSEN NOTIFIED. OKAY'S TO START PT ON 2 TABS NOW.
--- NOTE | 2020-05-22 14:13 | NUR ---
PATIENT UP IN CHAIR, ILIA SHARMA IN ROOM. VITALS AND I&OS CHARTED. DEISY EMPTIED.
--- NOTE | 2020-05-22 14:40 | NUR ---
ROUNDED WITH DR ROSEN. POC DISCUSSED. ABX GIVEN AND PT SALINE LOCKED.PAIN DECREASING AFTER PERCOCET 2 TAPS GIVEN. PT SITTING UP IN CHAIR. DEISY EMPTIED FOR 10 MLS.
--- NOTE | 2020-05-22 14:46 | NUR ---
LEFT AC IV REMOVED PER ILIA SHARMA
--- NOTE | 2020-05-22 15:58 | NUR ---
CALL LIGHT ANSWERED. PATIENT ASKS FOR PAIN MEDICINE. RN NOTIFIED
--- NOTE | 2020-05-22 16:11 | NUR ---
PT REPOTRING 10 PAIN. MOTRIN GIVEN.
--- NOTE | 2020-05-22 18:39 | NUR ---
HAD GOOD DAY. 2 TABS PERCOCET AND MOTRIN FOR PAIN MANAGEMENT. PAIN CONSISTENTLY 8-10/10. AMBULATED HALLS 3 TIMES. SANG DRAINAGE. 40 ML THIS SHIFT. SALINE LOCKED. VOIDING WELL. NO NAUSEA/VOMITING. EATING WELL.
--- NOTE | 2020-05-22 19:20 | NUR ---
SHIFT REPORT RECEIVED FROM ZACHARY MORILLO. PT RESTING IN BED, WATCHING TV. PAIN 04/26, PT RECENTLY RECEIVED PRN PAIN MEDS. NO OTHER NEEDS AT THIS TIME. CALL LIGHT IN REACH.
--- NOTE | 2020-05-22 21:07 | NUR ---
CALL LIGHT ON. REQUESTED PAIN MEDS. DISCUSSED PAIN MANAGEMENT. PROVIDED ICE PACK.
--- NOTE | 2020-05-22 21:42 | NUR ---
PT PAIN IS 9/10 AFTER RECENT PRN PAIN MEDS PROVIDED. PT STATES HER PAIN MANAGEMENT HAS BEEN POOR TODAY AND IS VERY UNCOMFORTABLE. MD CALLED BY TELEPHONE. MD GAVE VERBAL TELEPHONE ORDER FOR DILAUDID 4-8MG BY MOUTH EVERY 3 HOURS PRN FOR PAIN. MD ALSO ORDERED TORADOL STATED ON EMAR TO BE GIVEN NOW. MD IS AWARE OF MOTRIN ADMINISTRATION AT 1606 TODAY. ORDERS REPEATED BACK.
--- NOTE | 2020-05-22 22:01 | NUR ---
PT IN 10/10 PAIN, PRN PAIN MEDS PROVIDED. IV WNL, CDI, FLUSHED WELL. NO OTHER NEEDS AT THIS TIME. CALL LIGHT IN REACH.
--- NOTE | 2020-05-22 22:49 | NUR ---
ASSESSMENT COMPLETED. PT STATES PAIN IS "GOING DOWN" AND IS CURRENTLY 8/10. UPPER MID EPIGASTRIC PUNCTURE SITE CDO, COVERED WITH STERI STRIPS. DEISY SITE COVERED WITH FOAM, DRY BLOOD ON 1/2 OF DRESSING. LOWER MID EPIGASTRIC INCISION COVERED WITH FOAM, DRY. PT STATES ABD IS MODERATELY DISTENDED. GCS 15, A&O X4. CMS INTACT X 4 EXTREMITIES. LUNGS CLEAR. ABD SOFT, TENDER, BOWEL TONES ACTIVE. NO EDEMA NOTED IN EXTREMITIES. IV WNL. PT WALKED 1 LOOP AROUND NURSE'S STATION, TOLERATED WELL. PT DENIES PASSING GAS YET. NO OTHER NEEDS AT THIS TIME. CALL LIGHT IN REACH.
--- NOTE | 2020-05-23 01:01 | NUR ---
PT REPORTS NAUSEA, CLEAR SODA PROVIDED. COOL CLOTH PROVIDED. NO OTHER NEEDS AT THIS TIME. CALL LIGHT IN REACH.
--- NOTE | 2020-05-23 01:57 | NUR ---
PT RESTING IN BED, EYES CLOSED. RR EVEN, UNLABORED. CALL LIGHT IN REACH.
--- NOTE | 2020-05-23 04:40 | NUR ---
PT CALLS TO REPORT BLOOD ON THE BED. IT APPEARS THE DEISY DRAIN SITE BLED THROUGH THE DRESSING, DRESSING REINFORCED. PT AND BED CLEANED. PAIN 7/10, ICE PACK PROVIDED. ASSESSMENT COMPLETED. UPPER MID EPIGASTRIC SITE WNL. DEISY SITE REINFORCED, SS DRAINAGE. LOWER MID EPIGASTRIC SITE DRY, WNL, COVERED. ABD SOFT, TENDER, BOWEL TONES ACTIVE. NO EDEMA NOTED. GCS 15, A&O X4. CMS INTACT IN ALL EXTREMITIES. NO OTHER NEEDS AT THIS TIME. CALL LIGHT IN REACH.
--- NOTE | 2020-05-23 05:09 | NUR ---
PT REPORTS 8/10 ABD PAIN. PT DECLINES THE DILAUDID SHE FEELS THAT WAS THE SOURCE OF HER NAUSEA EARLIER IN THE NIGHT. PRN TORADOL PROVIDED. VS AND I&O COMPLETED BY DAVID WOODS. NO OTHER NEEDS AT THIS TIME. CALL LIGHT IN REACH.
--- NOTE | 2020-05-23 06:19 | NUR ---
PT SLEPT OFF AND ON THIS SHIFT. PAIN MANAGED WITH PRN MEDS. PT HAD AN EPISODE OF NAUSEA THAT SHE FEELS WAS BROUGHT ON BY THE ORAL DILAUDID, RESOLVED WITH CLEAR SODA AND TIME. UPPER MID EPIGASTRIC SITE WNL, DRY. DEISY SITE HAD A SMALL AMOUNT OF NEW, SANGUINOUS DRAINAGE, GAUZE APPLIED OVER CURRENT FOAM. DEISY DRIANAGE ABOUT 30ML OF SS BLOOD THIS SHIFT. LOWER MID EPIGASTRIC INCISION COVERED AND DRY. PT STATES ABD HAS BEEN MODERATELY DISTENDED BUT STARTED PASSING GAS THIS MORNING. PT TOLERATED FLUIDS AND SNACKS WELL. CMS INTACT X4 EXTREMITIES. UOS. VSS. PT IS INDEPENDENT IN ROOM, WALKED HALLS WITH SBA.
--- NOTE | 2020-05-23 06:48 | NUR ---
call light answered. pt requests to make a lap ambulating in lynn. pt was able to do half a lap and then was uncomfortable. pt declined any prn pain meds at this time. pt returned to bed. no further needs at this time.
--- NOTE | 2020-05-23 07:51 | NUR ---
REPORT RECEIVED. PT IN BED. PAIN 01/24. DENEIS NEEDS. CALL LIGHT IN REACH.
--- NOTE | 2020-05-23 09:28 | NUR ---
PATIENT BACK TO BED FROM BATHROOM. VITALS LUPE&OS CHARTED. DEISY EMPTIED. CALL LIGHT AND BESIDE TABLE IN REACH
--- NOTE | 2020-05-23 10:00 | NUR ---
PT OUT TO AMBULATE HALLS. PAIN 02/24.
--- NOTE | 2020-05-23 11:20 | OR ---
[facility] [address], [place] [address] Signed DATE OF OPERATION: 05/21/2020 SURGEON: Lyndsey Rosen MD PREOPERATIVE DIAGNOSES: 1. Acute abdomen with extensive pelvic fluid collection. 2. History of laparoscopic hysterectomy with right ovarian sparing by Dr. Berrios 8 weeks ago. 3. History of left ovarian cystectomy at age 16 with oophorectomy for cyst. 4. Obesity. POSTOPERATIVE DIAGNOSES: 1. Hemoperitoneum secondary to ruptured right hemorrhagic ovarian cyst. 2. Metastatic gas. PROCEDURES: 1. Laparoscopy. 2. Conversion to pelvic laparotomy with limited infraumbilical incision with right ovarian cystectomy and preservation of right remaining ovary. 3. Appendectomy. 4. Placement of drain. ANESTHESIA: General endotracheal; Kaley Garza CRNA and postoperative TAP block, abdominal wall. INDICATIONS: This obese 40-year-old white woman is a patient of Jake Lopez NP, and in the past 2 months or so underwent hysterectomy with sparing of the right tube and ovary as she is premenopausal. She had undergone left ovarian cystectomy and ovariectomy in her teenage years for a cyst problem. She had a sudden onset of pain early in the morning, low pelvic pain and presented to the emergency room where she was evaluated by Dr. Talbert. Her hematocrit was 42. A CT scan of the pelvis showed multiple areas of amorphous fluid collected in the pelvis and low abdomen, uncertain if hemorrhages were considered likely. The right ovary was not visualized nor was the appendix. The patient has been under monitoring during the day and hematocrit is as low as 32 at this point. She is hemodynamically stable throughout, but has significant pain still. Strong suspicion exists that this represents a ruptured hemorrhagic ovarian cyst. She was taken to the operation for laparoscopy and possible open procedure depending on clinical findings. She understands the risks of bleeding, infection, need for open Electronically Signed By: LYNDSEY ROSEN MD 05/23/20 1120 PATIENT NAME: ZACHARY MALDONADO OPERATIVE REPORT DATE OF : 76 REPORT #: [id number] PHYSICIAN: LYNDSEY ROSEN MD PCP: JAKE LOPEZ NP REPORT IS CONFIDENTIAL AND NOT TO BE RELEASED WITHOUT AUTHORIZATION [facility] [address], [place] [address] Signed procedure, need for unforeseen procedures, and wishes to proceed. FINDINGS: Significant hemoperitoneum was noted. There was free-flowing dark red blood and considerable amount of clot within the pelvis. The extent of clot and so forth was such that even with wide mouth suction devices, it could not be removed adequately to allow for diagnosis, and therefore a limited pelvic laparotomy was undertaken extending the infraumbilical incision several centimeters. Ultimately, found was a rather large at least 6 cm hemorrhagic right ovarian cyst. Complete cystectomy was performed with sparing of the ovary. Hemostasis was meticulous with regard to the fallopian tube in the region as well. There was surgical absence of the uterus and no sign of adnexal structures on the left side. The appendix was atretic and small, but was removed on the possibility she may have recurrent cyst problem in the future, which would complicate the diagnosis as regard to the right lower abdominal pain. Ovarian tissue was spared as the patient is clinically premenopausal. DESCRIPTION OF PROCEDURE: The patient was brought to the operating room, given a general endotracheal anesthetic. Swenson catheter was placed. Preoperative antibiotic Ancef had been given. Sequential compression device stockings used and heparin subcutaneously administered. The abdomen was prepared with a chlorhexidine solution after placement of Swenson catheter. An infraumbilical incision was made. Using open Steven cannula technique, pneumoperitoneum was achieved to a level of 14 mmHg of carbon dioxide gas. Intraabdominal inspection showed considerable amount of hemoperitoneum including free-flowing dark red and moderately red blood. An epigastric port was placed allowing for the count reposition there. Attempts at suctioning of the clot were rather unsuccessful as it was tenacious and attached to the pelvic structures quite densely. The free-flowing blood was able to be suctioned free. The right lower quadrant 10 mm port was placed tangentially so as to minimize chances of herniation postoperatively, allow for placement of a 10 mm large suction device. Still this was quite inadequate for allowing for removal of blood clot in the pelvis to define etiology of the bleeding. On that basis, despite efforts to do so, the trocars were removed under direct visualization showing no sign of bleeding and plans made for laparotomy. The infraumbilical incision was extended inferiorly approximately 10 cm, possibly a bit more, but not fully to the symphysis pubis. This allowed for withdrawal of copious amounts of clot from the pelvis in the low abdomen. Palpation revealed a nodular structure about the size of a large plum. This was manipulated into the wound for visualization and was confirmed to be a ruptured hemorrhagic ovarian cyst. It was reasonably generous, havasupai ovarian tissue. This appeared to be the source of bleeding Electronically Signed By: LYNDSEY ROSEN MD 05/23/20 1120 PATIENT NAME: ZACHARY MALDONADO OPERATIVE REPORT DATE OF : 76 REPORT #: [id number] PHYSICIAN: LYNDSEY ROSEN MD PCP: JAKE LOPEZ NP REPORT IS CONFIDENTIAL AND NOT TO BE RELEASED WITHOUT AUTHORIZATION [facility] [address], [place] [address] Signed entirely. Using electrocautery, the cyst was excised from the havasupai ovary somewhat in a wedge configuration removing entirely the cyst and its contents. The ovary was deemed appropriate for sparing as she was premenopausal and only 40 years of age. The parenchyma of the ovary was secured with running 2-0 Vicryl suture to provide good hemostasis. There was persistent oozing at the junction of the fallopian tube and the right ovary. Clips were first applied with some benefit. The persistent oozing required over-sewing with meticulous care using 3-0 silk suture. Good viability to the ovary and the infundibulopelvic ligament was noted. Irrigation was then taken and excess irrigation fluid suctioned free. The right tube and ovary were replaced in the pelvis and gauze applied to the area. Attention was then turned towards the cecum. Mindful that she could get another cyst with similarly ambiguous diagnosis, appendectomy was deemed appropriate. The appendix was identified and was rather atretic and small. The mesoappendix was incised and secured with a 3-0 silk tie after securing it with hemostats. The base of the appendix was crushed and milked distally and the crush rivre ligated with a 3-0 silk tie. The appendix was amputated, tip cauterized and inverted with a pursestring suture of 3-0 Vicryl. Re-examination of the pelvic area showed no sign of ongoing bleeding or other problems. Through the right-sided lower quadrant tangential 10 mm trocar, a 7 mm flat Gabriel drain was passed to the depths of the pelvis and secured to the skin with nylon suture. Attention was then turned towards closure. The laparotomy packs were removed and count affirmed as complete. The midline fascia was reapproximated with running #1 PDS suture. Subcutaneous tissue was copiously irrigated with saline solution and the skin closed with running subcuticular 3-0 Vicryl. Steri-Strips were applied. A silver sponge dressing was applied to the infraumbilical incision and to the drain site with a remnant of the initial dressing. Drain was attached to bulb suction. Blood loss in aggregate was about 500 mL of clot and 200 mL of fresh blood I believe. A postprocedure TAP block was placed by the cad programmer. She was extubated in the operating room and transferred to the recovery room in good condition. MD SARA Garcia/KAYCEEL /[id number] Electronically Signed By: LYNDSEY ROSEN MD 05/23/20 1120 PATIENT NAME: ZACHARY MALDONADO OPERATIVE REPORT DATE OF : 76 REPORT #: [id number] PHYSICIAN: LYNDSEY ROSEN MD PCP: JAKE LOPEZ NP REPORT IS CONFIDENTIAL AND NOT TO BE RELEASED WITHOUT AUTHORIZATION [facility] [address] [place] [id number] Signed cc: JakeGERRY High MD Copies: JAKE LOPEZ NP, MICHAEL JOHN MD ~ Electronically Signed By: LYNDSEY ROSEN MD 05/23/20 1120 PATIENT NAME: ZACHARY MALDONADO OPERATIVE REPORT DATE OF : 76 REPORT #: [id number] PHYSICIAN: LYNDSEY ROSEN MD PCP: JAKE LOPEZ NP REPORT IS CONFIDENTIAL AND NOT TO BE RELEASED WITHOUT AUTHORIZATION
--- NOTE | 2020-05-23 11:20 | HP ---
[facility] [address], [place] [address] Signed ADMISSION DATE: 05/21/2020 REASON FOR ADMISSION: Acute abdominal pain and pelvic fluid. HISTORY OF PRESENT ILLNESS: This 40-year-old white woman is known to me from the past. She has been and now lives in [place], [place]. She is the daughter of Teresa Preston, a nurse in our Day Surgery area. The patient presented with rather severe onset of abdominal pain, mostly in the low pelvis this morning at 5 a.m. Notably, 2 months ago, she underwent hysterectomy with left salpingo-oophorectomy by Dr. Berrios. The right ovary was retained, this was for benign disease. She tells me there were adhesions of her bowel of colon rather to pelvic organs. She had an uneventful recovery she says. Her pain is rather significant and low in the abdomen, but not associated with hypotension. She presents to the emergency room, where she was evaluated by Dr. Talbert. A CT scan was performed, which I have reviewed showing diffuse fluid in the pelvis and interpretation by Dr. Singletary of right pelvic process of unknown etiology, considering possible ruptured ovarian cyst, torsed ovary, or appendicitis. The ovary and appendix are not visible through the free fluid and possible blood. Notably, her laboratory studies showed a hematocrit of 42.3, a white count of 7.6. A repeat CBC is pending. REVIEW OF SYSTEMS: Her pain is rather vague and not accelerating at this time. She has been placed in the intensive care unit for house convenience. PHYSICAL EXAMINATION: GENERAL: Alert and oriented white woman, does not look diaphoretic or toxic in any way. VITAL SIGNS: Temperature is 97.6, pulse is 67, and blood pressure 122/87. NECK: Shows no thyromegaly or cervical adenopathy. Trachea is midline. CHEST: Shows normal respiratory excursion. CARDIOVASCULAR: Pulses regular. ABDOMEN: Obese, but soft. Palpation reveals diffuse tenderness in the low abdomen. EXTREMITIES: Show no clubbing, cyanosis, or edema. LABORATORY DATA: Laboratory studies as noted. White count 7.6, hematocrit 42.3, and platelets 354,000. Electronically Signed By: LYNDSEY ROSEN MD 05/23/20 1120 PATIENT NAME: ZACHARY MALDONADO HISTORY AND PHYSICAL DATE OF : 76 REPORT #: [id number] PHYSICIAN: LYNDSEY ROSEN MD PCP: JAKE PHILLIPS NP REPORT IS CONFIDENTIAL AND NOT TO BE RELEASED WITHOUT AUTHORIZATION [facility] [address], [place] [address] Signed Urinalysis; essentially normal. Chem profile; normal. Glucose 101. ASSESSMENT: I have reviewed the CT scan and given her clinical history and noting that she does have retained right ovary and also noting that at age 16 she underwent left ovarian cystectomy for a cyst greater than 6.5 cm, the probability is high, this represents a hemorrhagic ovarian cyst. She is under monitoring and I have recommended laparoscopy. Evacuation of the fluid from the pelvis and appropriate management whatever is found; this might actually represent appendicitis, I think it less likely. I discussed this with her in detail. She understands and agrees. We will plan for operation today. Lyndsey Rosen MD JM/MODL /[id number] cc: MD Brent Rosales MD Copies: ROBINSON TALBERT MD,BRENT SOLORIO MD ~ Electronically Signed By: LYNDSEY ROSEN MD 05/23/20 1120 PATIENT NAME: ZACHARY MALDONADO HISTORY AND PHYSICAL DATE OF : 76 REPORT #: [id number] PHYSICIAN: LYNDSEY ROSEN MD PCP: JAKE PHILLIPS NP REPORT IS CONFIDENTIAL AND NOT TO BE RELEASED WITHOUT AUTHORIZATION
--- NOTE | 2020-05-23 12:08 | NUR ---
MOTRIN GIVEN FOR 6/10 PAIN. PT REPORTING NAUSEA. DR ROSEN NOTIFIED. NEW ORDER FOR ZOFRAN. PT UP TO CHAIR FOR LUNCH.
--- NOTE | 2020-05-23 14:33 | NUR ---
VITALS AND I&OS CHARTED. PATIENT AWAKE IN BED. DEISY EMPTIED. CALL LIGHTI N REACH, NO OTHER NEEDS AT THIS TIME
--- NOTE | 2020-05-23 16:16 | NUR ---
ROUNDED ON PT. LYING IN BED WITH EYES CLOSED. CALL LIGHT IN REACH. RESPIRATIONS EQUAL AND NONLABORED.
--- NOTE | 2020-05-23 17:34 | NUR ---
PATIENT AWAKE IN BED. VITALS AND I&OS CHARTED. NOT ENOUGH LIQUID IN DEISY TO DRAIN. CALL LIGHT IN REACH
--- NOTE | 2020-05-23 17:41 | NUR ---
PT REPORTING 02/24 PERCOCET 2 TABS ADMISNTERED. PT ATE 100% OF DINNER. DEISY WITH SEROSANUINOUS DRAINAGE. DRESSINGS C/D/I.
--- NOTE | 2020-05-23 19:15 | NUR ---
SHIFT REPORT RECEIVED FROM DAYSHIFT RN ZACHARY AT BEDSIDE. PT AWAKE AND RESTING IN BED. REPORTS MILD DIZZINESS, STARTED THIS AFTERNOON PER RN. MIDLINE INCISION C/D/I, DEISY DRAIN PATENT. OUTPUT SEROSANGUINEOUS IN COLOR. NO DISTRESS NOTED. DENIES NEEDS, CALL LIGHT IN REACH.
--- NOTE | 2020-05-23 20:45 | NUR ---
TOOK PT VITALS, I&Os IN, FRESH ICE WATER GIVEN, NO FURTHER REQUESTED AT THIS TIME
--- NOTE | 2020-05-23 21:50 | NUR ---
ASSESSMENT COMPLETE, PRN CONSTIPATION MED GIVEN (SEE EMAR). VSS AND I&O'S DONE. PT REPORTS 7/10 PAIN IN ABD, RECENTLY MEDICATED WITH MOTRIN BY BUSINESS PROCESS EXPERT. ADDITIONAL MEDS DECLINED BY PT, STATING "I'LL WAIT AN HOUR AND CALL YOU IF I NEED SOMETHING". NO NAUSEA REPORTED, ABD INCISION C/D/I. DEISY EMPTIED FOR 10MLS SEROSANGUINEOUS. NO ADDITIONAL NEEDS, CALL LIGHT IN REACH. SCANT LEAKING NOTED WITH SALINE FLSUH, RESOLVED AFTER REPSOTIONING OF CATHETER.
--- NOTE | 2020-05-23 23:48 | NUR ---
ROUNDED ON PT. PT RESTING IN BED WITH EYES CLOSED. RR EVEN AND UNLABORED. NO DISTRESS NOTED. CALL LIGHT IN REACH.
--- NOTE | 2020-05-24 00:27 | NUR ---
CALL LIGHT ON. pt REPORTED 9/10 PAIN. PRN GIVEN. PAIN MANAGEMENT EDUCATION DONE. CALL LIGHT WITHIN REACH.
--- NOTE | 2020-05-24 01:38 | NUR ---
PT AWAKE AND RESTING IN BED. RECENTLY MEDICATED WITH PRN PERCOCET. EDUCATION GIVEN ON CALLING TOYS AND GAMES HAND FINISHER IF PAIN DOES NOT IMPROVE. PT VERBALIZED UNDERSTANDING. CALL LIGHT IN REACH.
--- NOTE | 2020-05-24 03:21 | NUR ---
PT RESTING IN BED WITH EYES CLOSED. RR EVEN AND UNLABORED. NO DISTRESS NOTED. PT APPEARS COMFORTABLE, NO OUTWARDS SIGNS OF PAIN OBSERVED AT THIS TIME. CALL LIGHT IN REACH.
--- NOTE | 2020-05-24 04:20 | NUR ---
PT UP AMBULATING IN HALLWAY WITH PEGGY HERNANDEZ.
--- NOTE | 2020-05-24 04:20 | NUR ---
ASSESSMENT COMPLETE, NO NEW CHANGES. PT REPORTS 5/10 PAIN, PRN MOTRIN GIVEN (SEE EMAR). ABD DRESSING C/D/I, PT DENIES NAUSEA. DEISY DRAIN PATENT, 20 MLS OUTPUT NOTED. SEROSANGUINEOUS IN COLOR. VS AND I&O'S DONE. CALL LIGHT IN REACH.
--- NOTE | 2020-05-24 07:56 | NUR ---
REPORT RECEIVED. PT IN BED. REPORTS PAIN 02/24. PRN PAIN MEDICATION GIVEN ALONG WITH DULCOLAX PER PT REQUEST. SET UP FOR SHOWER. CALL LIGHT IN REACH. COFFEE PROVIDED. NO FURTHER NEEDS.
--- NOTE | 2020-05-24 09:40 | NUR ---
PATIENT UP TO SHOWER AND BACK TO CHAIR, IND. AM CARE, ORAL CARE, SHAMPOO, SKIN CARE, SHOWER DONE. LINENS CHAGNED. NEW GOWN PROVIDED. CALL LIGHT IN REACH. NO FURTHER NEEDS AT THIS TIME.
[2020-05-24] MEDS ORDERED: IBUPROFEN600 MG PO (09:52)
[2020-05-24] MEDS ORDERED: OXYCODON-ACETA1 EAC2 PO (09:52)
[2020-05-24] MEDS ORDERED: ACETAMINOPHEN500 MG PO (09:53)
[2020-05-24] MEDS ORDERED: ONDANSETRON ODT4 MG SL (09:53)
--- NOTE | 2020-05-24 12:40 | NUR ---
DISCHARGE INSTRUCITONS PROVIDED. DRESSING TO ABDOMEN DC'D PER ORDER. STERI STRIPS LEFT IN PLACE. PT INSTRUCTED ON HOME CARE INCLUDING, SHOWERING DAILY, WEIGHT LIMITS IN LIFTING, S/SX OF INFECTION, FOLLOW UP APPOINTMENT, AND PAIN MANAGEMENT. QUESTIONS ANSWERED.
== END 2020-05-24 11:55 | disposition home or self-care (01) | DRG 742 ==
LOC: ED 05:27 → CCU 05:29 → ED 05:29 → CCU 05:29 → MS 18:20
PROVIDERS: ADMIT Surgery; ATTEND Surgery
PROC: 0WJG4ZZ Inspection of Peritoneal Cavity, Percutaneous Endoscopic Approach (ICD-10-PCS; 2020-05-21)
PROC: 3E0T3BZ Introduction of Anesthetic Agent into Peripheral Nerves and Plexi, Percutaneous Approach (ICD-10-PCS; 2020-05-21)
PROC: 3E0T33Z Introduction of Anti-inflammatory into Peripheral Nerves and Plexi, Percutaneous Approach (ICD-10-PCS; 2020-05-21)
PROC: 0UB00ZZ Excision of Right Ovary, Open Approach (ICD-10-PCS; principal; 2020-05-21 14:45)
PROC: 0DTJ0ZZ Resection of Appendix, Open Approach (ICD-10-PCS; 2020-05-21 14:45)
DX: N83.201 Unspecified ovarian cyst, right side (principal); K66.1 Hemoperitoneum; Z20.828 Contact with and (suspected) exposure to other viral communicable diseases; G89.18 Other acute postprocedural pain; K38.8 Other specified diseases of appendix; E66.9 Obesity, unspecified; K21.9 Gastro-esophageal reflux disease without esophagitis; J30.2 Other seasonal allergic rhinitis; Z53.31 Laparoscopic surgical procedure converted to open procedure; Z79.899 Other long term (current) drug therapy; Z88.1 Allergy status to other antibiotic agents; Z90.710 Acquired absence of both cervix and uterus; Z68.33 Body mass index [BMI] 33.0-33.9, adult
CPT/HCPCS: 36415; 74177; 76942; 80053; 81001; 83690; 85025; 94762; 96361; 99285-25; A9270; C9803; G0378; J0330; J0690; J1100; J1170; J1885; J2001; J2250; J2270; J2405; J2550; J2704; J2795; J3475; J7030; J7121; Q9967

== ENCOUNTER 2020-06-10 11:21 | Emergency (ER) | payer OTHER ==
[~2020-06-10] VITALS: Ht 170.2 cm; Wt 96.4 kg
[~2020-06-10 11:21] MED LIST changes: +ACETAMINOPHEN500 MG PO; +ADVIL200 MG PO; +ALLERGY RELIEF10 M1 PO; +IBUPROFEN600 MG PO; +ONDANSETRON ODT4 MG SL; +OXYCODON-ACETA1 EAC2 PO; +TOPAMAX25 MG PO; +TYLENOL EXTRA500 MG PO
--- OUTSIDE RECORDS SUMMARY | 2020-06-10 11:26 | XMS ---
PreManage Notification: ZACHARY MALDONADO [employer] Tech Events No recent Security Events currently on file CRITERIA MET - [facility] - 2 Visits in 30 Days CARE PROVIDERS JACQUELINE Henry Nurse Practitioner 05/26/2020-Rasheed JOSEPH PHONE: [phone] Lex has no Care Guidelines for this patient. Laila VISIT COUNT (12 MO.) 2 [facility] TOTAL 2 NOTE: Visits indicate total known visits. ED/UCC VISIT TRACKING (12 MO.) 06/10/2020 11:23 [facility] TYPE: Emergency COMPLAINT: - LEFT SIDE ABD PAIN 05/21/2020 05:28 [facility] TYPE: Emergency COMPLAINT: - ABD PAIN INPATIENT VISIT TRACKING (12 MO.) 05/21/2020 09:25 [facility] TYPE: Medical Surgical COMPLAINT: - ACUTE ABDOMEN PELVIC FLUID HX OF HYSTERECTOMY DIAGNOSES: - Contact with and (suspected) exposure to other viral communic - Other seasonal allergic rhinitis - Allergy status to other antibiotic agents status - Other acute postprocedural pain - Other acute postprocedural pain - Gastro-esophageal reflux disease without esophagitis - Other seasonal allergic rhinitis - Hemoperitoneum - Other specified diseases of appendix - Laparoscopic surgical procedure converted to open procedure - Obesity, unspecified - Acquired absence of both cervix and uterus - Body mass index (BMI) 33.0-33.9, adult - Unspecified ovarian cyst, right side - Lower abdominal pain, unspecified - Other specified diseases of appendix - Contact with and (suspected) exposure to other viral communic - Other skilled nursing (current) drug therapy - Hemoperitoneum - Acquired absence of both cervix and uterus - Unspecified ovarian cyst, right side - Gastro-esophageal reflux disease without esophagitis - Body mass index (BMI) 33.0-33.9, adult - Other terminal gauger supervisor (current) drug therapy - Laparoscopic surgical procedure converted to open procedure - Allergy status to other antibiotic agents status - Obesity, unspecified [email or web address]
== END 2020-06-10 15:43 | disposition home or self-care (01) ==
LOC: ED 11:21
DX: R10.9 Unspecified abdominal pain (principal); Z88.8 Allergy status to other drugs, medicaments and biological substances; Z79.899 Other long term (current) drug therapy
CPT/HCPCS: 74177; 80053; 81001; 83690; 85025; 99284-25; J1170; J2405; Q9967

== ENCOUNTER 2023-08-17 08:49 | Day surgery (SDC) | payer OTHER ==
[~2023-08-17] VITALS: Ht 170.2 cm; Wt 95.9 kg
[2023-08-17 09:21] VITALS: BP 119/86
[2023-08-17] MEDS ORDERED: HYDROCHLOROTHIA25 MG PO (09:24)
[2023-08-17] MEDS ORDERED: METFORMIN HCL500 MG PO (09:24)
[2023-08-17] MEDS ORDERED: ESTRADIOL1 EAC7 TD (09:28)
[2023-08-17] MEDS ORDERED: TOPIRAMATE25 MG PO (09:28)
[2023-08-17] MEDS ORDERED: VALACYCLOVIR500 MG PO (09:29)
[2023-08-17] MEDS ORDERED: PREVACID 24HR15 MG PO (09:30)
--- NOTE | 2023-08-17 12:15 | NUR ---
08/17/23 1215 Shayy Obando 1201- PT PRESENTS TO PACU IN SEMI MORTON POSITION, AWAKE BUT DROWSY. DENIES NAUSEA, C/O 2/10 PAIN TO ABD. ABD SOFT AT THIS TIME, ENCOURAGED TO PASS GAS TO RELIEVE DISCOMFORT. LR INFUSING TO RFA IV, O2 AT 3L PER NC. ALL MONITORS IN PLACE. 1210- PT REPORTS PAIN INCREASING 6/10. REPOSITIONED PT TO LEFT SIDE AND BROUGHT KNEES UP TO HELP WITH PASSING GAS. PT FOLLOWS DIRECTIONS AND IS SUCCESSFUL. WILL REEVALUATE. 1215- DR ROSEN AT BEDSIDE.
[2023-08-17 12:40] VITALS: BP 104/64
--- NOTE | 2023-08-17 14:58 | OR ---
[facility] [address], [place] [address] Signed DATE OF OPERATION: 08/17/2023 SURGEON: Lyndsey Rosen MD PREOPERATIVE DIAGNOSES: 1. Persistent right upper abdominal pain, history of cholecystectomy in 2000 with clinical symptoms of reflux. 2. Colon screening. POSTOPERATIVE DIAGNOSES: 1. Two small polyps of rectum (excised) minimal diverticular change. Normal ileum. 2. Small hiatal hernia. Gastric polyps. No evidence of esophagitis. PROCEDURES: 1. Esophagogastroduodenoscopy with biopsy. 2. Total colonoscopy to cecum with cold morcellation polypectomy x2 and biopsy of ileum. ANESTHESIA: Intravenous sedation fentanyl 200 mcg and Versed 10 mg (total). INDICATION: This 43-year-old white woman is a patient of Dr. Ahmet Warren as well as AVANI Vogel. She is known to me from the past having undergone excision of a hemorrhagic ovarian cyst in 2019. Additionally, she underwent upper endoscopy by me in 2012, 2014 and 2017. She is referred at this time for colonoscopy based on her age. She underwent colonoscopy in 2004. Additionally, she has had some episodes of rectal bleeding including occasional black stool. She had no associated perianal pain and no hematemesis. She has had right upper abdominal pain, having undergone cholecystectomy in 2000 and current appendectomy performed in 2019. She does take PPI medication on routine basis for clinical reflux symptoms. On the basis of her aforementioned issues she is here to undergo upper endoscopy and colonoscopy. She understands the risk of bleeding, infection, perforation, and so on. FINDINGS: Upper endoscopy showed a hiatal hernia but no sign of active esophagitis particularly. CLOtest was negative. She did have some gastric polyps almost certainly related to chronic PPI use. On colonoscopy, the prep was good. Complete colonoscopy was undertaken of the cecum Electronically Signed By: LYNDSEY ROSEN MD 08/17/23 1458 PATIENT NAME: ZACHARY MALDONADO OPERATIVE REPORT DATE OF : 76 REPORT #: [id number] PHYSICIAN: LYNDSEY ROSEN MD PCP: FRENCH OLSON REPORT IS CONFIDENTIAL AND NOT TO BE RELEASED WITHOUT AUTHORIZATION [facility] [address], [place] [address] Signed with intubation of the ileum as well. Lymphoid aggregates were noted in the ileum, though they did not appear to be pathologic. Biopsies were obtained. The colon was normal except for a few scattered diverticula in two very small polyps of the rectum, both excised. PROCEDURE IN DETAIL: The patient was brought to the endoscopy suite, given topical lidocaine hypopharyngeal anesthesia and placed in lateral decubitus position. She was given intravenous sedation to the point of slurred speech and nystagmus with full cardiopulmonary monitoring. A bite block was placed. Olympus video upper endoscope was passed in the hypopharynx. The vocal cords appeared normal. The scope was advanced to the esophagus throughout its length, it was normal. The scope was advanced to the stomach which was insufflated with air. Rugal folds were normal. She had a fair amount of bile within the stomach, it is noted. Pylorus was normal, scope was passed through it into the duodenum, which was normal. Biopsies were taken of the duodenum to assess for celiac disease. The scope was withdrawn and biopsies then taken of the antrum of stomach. Retroflexed view showed a small hiatal hernia. Scope was straightened and visualization of gastric polyps undertaken. One of a auto service representative polyp was excised. Most likely, they are reactive to PPI use. Scope was withdrawn and distal esophageal biopsies were obtained of the mucosa appeared reasonably normal. Similar biopsies were taken of mid esophagus. The scope was removed. Plans made for colonoscopy. Additional sedation was given as needed. Digital rectal examination performed showing no sign of abnormality. An Olympus video colonoscope was passed in the rectum and manipulated throughout the colon noting a few diverticula but no other findings at that point. Scope was ultimately passed to the cecum. Full intubation of the cecum was noted. The ileocecal valve and appendiceal orifice were normal. Scope was advanced in the ileum. The ileum did show some lymphoid aggregates as would be typical and normal. Biopsies were obtained to assess for occult ileitis. Scope was withdrawn and examination confirmed no sign of abnormality until the rectum where retroflexed view confirmed two small probably adenomatous polyps, both were excised with cold morcellation technique. The scope was withdrawn and removed. The patient was taken to the recovery room in good condition. CONCLUDING DIAGNOSES: 1. Clinical gastroesophageal reflux with associated hiatal hernia much benefitted by PPI use. Would recommend continued use of PPI medication. 2. Two very small polyps of rectum, both excised. Would recommend repeat colonoscopy in Electronically Signed By: LYNDSEY ROSEN MD 08/17/23 9226 PATIENT NAME: ZACHARY MALDONADO OPERATIVE REPORT DATE OF : 76 REPORT #: [id number] PHYSICIAN: LYNDSEY ROSEN MD PCP: FRENCH OLSON REPORT IS CONFIDENTIAL AND NOT TO BE RELEASED WITHOUT AUTHORIZATION [address] [address] Signed five years or so. High-fiber diet is recommended on the basis of minimal diverticular disease. She will return to the ongoing care of AVANI Vogel and Dr. Ahmet Warren. MD SARA Garcia/KAYCEEL /[id number] cc: AVANI Vogel DO Copies: AGUSTIN WARREN (SHANIQUA) ~ Electronically Signed By: LYNDSEY ROSEN MD 08/17/23 1458 PATIENT NAME: ZACHARY MALDONADO OPERATIVE REPORT DATE OF : [birth year] REPORT #: [id number] PHYSICIAN: LYNDSEY ROSEN MD PCP: FRENCH OLSON REPORT IS CONFIDENTIAL AND NOT TO BE RELEASED WITHOUT AUTHORIZATION
--- NOTE | 2023-08-22 12:02 | PATH ---
[facility] [address] [place], [place] [address] Signed SPECIMEN(S): A DUODENAL BIOPSY SPECIMEN(S): B ANTRUM/ANTRAL BIOPSY SPECIMEN(S): C STOMACH POLYP SPECIMEN(S): D DISTAL ESOPHAGEAL BIOPSY SPECIMEN(S): E MIDDLE ESOPHAGEAL BIOPSY SPECIMEN(S): F ILEUM BX SPECIMEN(S): G RECTAL POLYP SPECIMEN SOURCE: A. DUODENAL BIOPSY B. ANTRUM/ANTRAL BIOPSY C. STOMACH POLYP D. DISTAL ESOPHAGEAL BIOPSY E. MIDDLE ESOPHAGEAL BIOPSY F. ILEUM BX G. RECTAL POLYP CLINICAL HISTORY: EGD/colonoscopy. Upper, GERD, upper abdominal pain, rectal bleeding FINAL PATHOLOGIC DIAGNOSIS: A. Duodenum, biopsy: - No significant histopathology. B. Stomach, antrum, biopsy: - No significant histopathologic alterations. C. Stomach, polyp, biopsy: - Benign fundic gland polyp. D. Distal esophagus, biopsy: - Portions of unremarkable squamous mucosa. E. Middle esophagus, biopsy: - Portions of unremarkable squamous mucosa. F. Small intestine, ileum, biopsy: - No significant histopathology. G. Rectum, polyp, biopsy: - Hyperplastic polyp, 1 fragment. - An additional fragment of rectal epithelium was within normal limits. COMMENT: A. The sections from the duodenal biopsy show portions of duodenal mucosa with long fingerlike villi. There is no villous atrophy, crypt hyperplasia or intraepithelial lymphocytosis making a PATIENT NAME: ZACHARY MALDONADO PATHOLOGY DATE OF : 76 REPORT #: [id number] PHYSICIAN: ALLISON ROMAN PCP: FRENCH OLSON REPORT IS CONFIDENTIAL AND NOT TO BE RELEASED WITHOUT AUTHORIZATION [facility] [address], [place] [address] Signed diagnosis of celiac disease unlikely. There is no evidence of peptic duodenitis, microorganisms, abnormal infiltrates or neoplasia. B. The sections through the gastric biopsies show fragments of histologically unremarkable antral mucosa. There is no evidence of acute or chronic inflammation. There is no evidence of H. pylori, intestinal metaplasia, abnormal infiltrates or neoplasia. C. These sections demonstrate features of a fundic gland polyp. There is no evidence of dysplasia, intestinal metaplasia or Helicobacter pylori. Fundic gland polyps can occur as an isolated phenomenon. They may also represent a manifestation of familial adenomatous polyposis syndrome and are a common type of polyp seen in patients taking proton pump inhibitors. D, E. The biopsy shows normal appearing squamous epithelium. There is no evidence of acute or chronic inflammation. No glandular mucosa is present. F. The sections through the terminal ileum show portions of ileal mucosa that is architecturally normal. There is no evidence of acute or chronic inflammation. There are no abnormal infiltrates, microorganisms, tumors, or polyps. No granulomas are seen. G. There is no evidence of dysplasia or malignancy. K MICROSCOPIC EXAMINATION: Histologic sections of all submitted blocks are examined by light microscopy. These findings, together with the gross examination, support the pathologic diagnosis. GROSS DESCRIPTION: A. The specimen, labeled and designated "Schiffperla, duodenal biopsy," is received in formalin and consists of two chaudhary soft tissue fragments, ranging from 0.3-0.5 cm. Entirely submitted in (A1). B. The specimen, labeled and designated "Schiffperla, antral biopsy," is received in formalin and consists of two chaudhary soft tissue fragments, ranging from 0.2-0.5 cm. Entirely submitted in (B1). C. The specimen, labeled and designated "Schiffperla, stomach polyp," is received in formalin and consists of one chaudhary soft tissue fragment, 0.4 cm. Entirely submitted in (C1). D. The specimen, labeled and designated "Morgan, distal esophageal biopsy," is received in formalin and consists of two chaudhary soft tissue fragments, ranging from 0.3-0.4 cm. Entirely submitted in (D1). E. The specimen, labeled and designated "Morgan, middle esophageal biopsy," PATIENT NAME: ZACHARY MALDONADO PATHOLOGY DATE OF : 76 REPORT #: [id number] PHYSICIAN: ALLISON ROMAN PCP: FRENCH OLSON REPORT IS CONFIDENTIAL AND NOT TO BE RELEASED WITHOUT AUTHORIZATION [facility] [address] [place], [place] [address] Signed is received in formalin and consists of one chaudhary soft tissue fragment, 0.3 cm. Entirely submitted in (E1). F. The specimen, labeled and designated "Morgan, ileum biopsy," is received in formalin and consists of three chaudhary soft tissue fragments, ranging from 0.1-0.3 cm. Entirely submitted in (F1). G. The specimen, labeled and designated "Morgan, rectal polyp," is received in formalin and consists of two chaudhary soft tissue fragments, ranging from 0.2-0.3 cm. Entirely submitted in (G1). VB (under the direct supervision of a pathologist) The Gross Description was prepared using a voice recognition system. The report was reviewed for accuracy; however, sound-alike word errors, addition and/or deletions may occur. If there is any question about this report, please contact Client Services. ADDITIONAL NOTES: Immunohistochemical and/or in situ hybridization studies if performed in this case included appropriate positive controls that reacted as expected. This test was developed and its performance characteristics determined by [facility]. It has not been cleared or approved by the U.S. Food and Drug Administration. The FDA has determined that such clearance or approval is not necessary. This test is used for clinical purposes. It should not be regarded as investigational or for research. [facility] is certified under the Clinical Laboratory Improvement Amendments of 1988 (CLIA) as qualified to perform high complexity clinical laboratory testing. PERFORMING LABORATORY: Technical component was performed by [facility], [address] [place] [id number] (CLIA# [id number]). Professional interpretation was performed by [facility] - [facility] [address] [address] (CLIA#:[id number]). Diagnostician: Scott Rodgers MD Pathologist Electronically Signed 08/22/2023 Copies: PATIENT NAME: ZACHARY MALDONADO PATHOLOGY DATE OF : 76 REPORT #: [id number] PHYSICIAN: ALLISON ROMAN PCP: FRENCH OLSON REPORT IS CONFIDENTIAL AND NOT TO BE RELEASED WITHOUT AUTHORIZATION [facility] [address] [place] [id number] Signed ~ PATIENT NAME: ZACHARY MALDONADO PATHOLOGY DATE OF : 76 REPORT #: [id number] PHYSICIAN: ALLISON PATHOLOGY PCP: FRENCH OLSON REPORT IS CONFIDENTIAL AND NOT TO BE RELEASED WITHOUT AUTHORIZATION
== END 2023-08-17 12:50 | disposition home or self-care (01) ==
LOC: OPS 08:49 → DS 08:49 → OPS 10:15
PROVIDERS: ATTEND Surgery
PROC: 0DB78ZX Excision of Stomach, Pylorus, Via Natural or Artificial Opening Endoscopic, Diagnostic (ICD-10-PCS; 2023-08-17)
PROC: 0DB28ZX Excision of Middle Esophagus, Via Natural or Artificial Opening Endoscopic, Diagnostic (ICD-10-PCS; 2023-08-17)
PROC: 0DB38ZX Excision of Lower Esophagus, Via Natural or Artificial Opening Endoscopic, Diagnostic (ICD-10-PCS; 2023-08-17)
PROC: 0DBP8ZZ Excision of Rectum, Via Natural or Artificial Opening Endoscopic (ICD-10-PCS; 2023-08-17)
PROC: 0DB68ZZ Excision of Stomach, Via Natural or Artificial Opening Endoscopic (ICD-10-PCS; principal; 2023-08-17 10:15)
PROC: 0DB98ZX Excision of Duodenum, Via Natural or Artificial Opening Endoscopic, Diagnostic (ICD-10-PCS; 2023-08-17 10:15)
DX: Z12.11 Encounter for screening for malignant neoplasm of colon (principal); K62.1 Rectal polyp; K44.9 Diaphragmatic hernia without obstruction or gangrene; K31.7 Polyp of stomach and duodenum; E66.9 Obesity, unspecified; K31.84 Gastroparesis; Z78.0 Asymptomatic menopausal state; Z90.49 Acquired absence of other specified parts of digestive tract; Z79.899 Other long term (current) drug therapy
CPT/HCPCS: 99153; G0500; J2250; J3010; J7121